=== PATIENT | female | born 1965 ===

== ENCOUNTER → 2021-02-09 | Outpatient (CLI) | payer MEDICAID | END | disposition home or self-care (01) | LOC: LAB 10:09 | PROVIDERS: ATTEND Internal Medicine Pulmonary Disease | DX: Z01.812 Encounter for preprocedural laboratory examination (principal); Z20.822 Contact with and (suspected) exposure to COVID-19 | CPT/HCPCS: 36415; 87426 ==

== ENCOUNTER → 2021-02-10 | Outpatient (CLI) | payer MEDICAID ==
[~2021-02-10] MED LIST: ALBUTEROL SULF 2.5 MG/0.5ML(0.5%) NEB SOLN ONE
== END | disposition home or self-care (01) ==
LOC: RT 09:01
PROVIDERS: ATTEND Internal Medicine Pulmonary Disease
DX: R06.00 Dyspnea, unspecified (principal)
CPT/HCPCS: 94060; 94618; 94727; 94729

== ENCOUNTER 2021-04-27 16:51 | Emergency (ER) | payer MEDICAID ==
[~2021-04-27] VITALS: Ht 152.4 cm; Wt 72.6 kg
[2021-04-27 16:55] VITALS: BP 138/60
== END 2021-04-27 18:51 | disposition left against medical advice (07) ==
LOC: ER 16:51
DX: R06.02 Shortness of breath (principal); R07.89 Other chest pain; R05.9 Cough, unspecified; R50.9 Fever, unspecified; R51.9 Headache, unspecified; R42 Dizziness and giddiness; Z53.21 Procedure and treatment not carried out due to patient leaving prior to being seen by health care provider
CPT/HCPCS: 93005